=== PATIENT | male | born 1980 | race Two or more races ===

== ENCOUNTER 2017-10-05 22:16 | Emergency (ER) | payer OTHER ==
[~2017-10-05] VITALS: Ht 147.3 cm; Wt 68.0 kg
[2017-10-05 22:31] VITALS: BP 124/76
[2017-10-05] MEDS ORDERED: Bacitracin Oint UD TOPIC ONE (23:10)
[2017-10-05 23:30] VITALS: BP 124/76
--- NOTE | 2017-10-06 03:12 | Emergency Room Report ---
History of Present Illness General Chief Complaint: Laceration Source: Patient Present Illness HPI Patient had pushed through a glass window Was brought in police department for okay for booking Patient himself denies any other trauma Denies any chest pain or shortness of breath Last tetanus shot was about 3 years ago Denies any lapse of consciousness patient reports that he was angry any he did punch through a window Allergies: Coded Allergies: No Known Allergies (Unverified , 10/05/17) Patient History Past Medical History: see triage record Pertinent Family History: none Reviewed Nursing Documentation: PMH: Agreed; PSxH: Agreed Nursing Documentation-PMH Past Medical History: No Stated History Review of Systems All Other Systems: negative except mentioned in HPI Physical Exam Vital Signs Date Time Temp Pulse Resp B/P (MAP) Pulse Ox O2 Delivery O2 Flow Rate FiO2 10/05/17 22:12 98.3 116 18 124/76 93 Room Air 98.2 Sp02 EP Interpretation: reviewed, normal General Appearance: well appearing, no apparent distress Head: normocephalic, atraumatic Eyes: bilateral eye PERRL, bilateral eye EOMI ENT: hearing grossly normal, normal pharynx, TMs + canals normal, uvula midline Neck: full range of motion, supple, no meningismus, no bony tend Respiratory: lungs clear, normal breath sounds, no rhonchi, no respiratory distress, no retraction, no accessory muscle use Cardiovascular #1: normal peripheral pulses, regular rate, rhythm, no edema, no gallop, no JVD, no murmur Gastrointestinal: normal bowel sounds, non tender, soft, no mass, no organomegaly, non-distended, no guarding, no hernia, no pulsatile mass, no rebound Genitourinary: no CVA tenderness Musculoskeletal: normal inspection Neurologic: oriented x3, responsive, propagator III-XII nml as tested, motor strength/ tone normal, sensory intact Psychiatric: mood/affect normal Skin: other - Superficial laceration to the right antecubital region, approximately 2 cm, appears to breakthrough the upper dermis, there was also superficial laceration to the right hyperthenar eminence, no obvious open wound Lymphatic: normal inspection, no adenopathy Medical Decision Making Diagnostic Impression: Primary Impression: Laceration Additional Impression: ok to book ER Course Patient had wound irrigation and cleansing of the areas At this time the areas in question did not require any further intervention Antibiotic ointment was applied and dressing on top of the antecubital fossa lesion However the area is too superficial for any further intervention And will have secondary healing patient was considered okay to book Last Vital Signs Date Time Temp Pulse Resp B/P (MAP) Pulse Ox O2 Delivery O2 Flow Rate FiO2 10/05/17 23:30 98.2 18 124/76 93 Room Air 98.2 10/05/17 22:12 116 Status: improved Disposition: HOME, SELF-CARE Condition: Improved Referrals: NOT CHOSEN IPA/MD,REFERRING (PCP) Departure Forms: [facility] Clearance Patient Instructions: Nonsutured Laceration Care Additional Instructions: Follow-up narayan Corona in the morning Rustam Thurston DO Oct 06, 2017 03:12
== END 2017-10-05 23:31 ==
LOC: EDBD 22:16 → EMR 22:40
DX: S41.111A Laceration without foreign body of right upper arm, initial encounter (principal); S61.411A Laceration without foreign body of right hand, initial encounter; W25.XXXA Contact with sharp glass, initial encounter; Y92.9 Unspecified place or not applicable
CPT/HCPCS: 99282